=== PATIENT | female | born 1965 | race Hispanic/Latino ===

== ENCOUNTER 2017-01-05 19:01 | Emergency (ER) | payer OTHER ==
[2017-01-05] MEDS ORDERED: BACTRIM DS PO ONE (19:15)
--- NOTE | 2017-01-05 19:17 | Emergency Department Report ---
HPI - General Time Seen by Provider: 01/05/17 19:15 - HPI HPI: 54-year-old female who presents to the emergency department with complaint of pain, redness and some swelling around the left elbow. It started off this morning as a small bump but there was some small amount of purulent discharge. It is gotten progressively bigger since. There is some mild discomfort. There is also some mild swelling but it is not gotten to the point where it is restricted her range of motion. She has a history of abscess and cellulitis in the past. She has an anaphylactic reaction to penicillin's. She otherwise has a past medical history of hypertension. She has not taken anything for symptoms prior to presentation. She denies any fever, nausea, vomiting. No recent travel or sick contacts at home. She works at a [employer] but denies any animal bites or scratches. ED Past Medical Hx - Medications Home Medications: Home Medications Medication Instructions Recorded Confirmed Last Taken Type Losartan [Cozaar] 50 mg PO BID 01/05/17 01/05/17 Unknown History PARoxetine [Paxil] 5 mg PO QDAY 01/05/17 01/05/17 Unknown History Sulfamethoxazole/Trimethoprim 1 each PO BID #14 tablet 01/05/17 Unknown Rx [Bactrim DS TAB] ED Review of Systems ROS: Stated complaint: ELBOW PAIN Other details as noted in HPI Comment: All other systems reviewed and negative Constitutional: denies: chills, fever Eyes: denies: eye pain, eye discharge, vision change ENT: denies: ear pain, throat pain Respiratory: denies: cough, shortness of breath, wheezing Cardiovascular: denies: chest pain, palpitations Gastrointestinal: denies: abdominal pain, nausea, diarrhea Genitourinary: denies: urgency, dysuria, discharge Musculoskeletal: joint swelling. denies: back pain Skin: change in color. denies: pruritus Neurological: denies: headache, weakness, paresthesias Physical Exam - Physical Exam Physical Exam: GENERAL: The patient is well-developed well-nourished. HEENT: Normocephalic. Atraumatic. Extraocular motions are intact. Patient has moist mucous membranes. NECK: Supple. Trachea is midline. CHEST/LUNGS: Clear to auscultation. There is no respiratory distress noted. HEART/CARDIOVASCULAR: Regular. There is no tachycardia. There is no gallop rub or murmur. ABDOMEN: Abdomen is soft, nontender. Patient has normal bowel sounds. There is no abdominal distention. SKIN: There is a area of erythema to the left upper extremity starting at the distal posterior humerus and going to the proximal volar forearm that appears consistent with a cellulitis. In the area of the forearm there is a small fluctuant raised area consistent with a abscess and a small punctate opening but no current drainage. NEURO: The patient is awake, alert, and oriented. The patient is cooperative. The patient has no focal neurologic deficits. The patient has normal speech. MUSCULOSKELETAL: There is some mild tenderness palpation to the left elbow and forearm the patient has a cellulitis and abscess. Radial pulses +2 over 4 bilaterally. There is no limitation range of motion. ED Medical Decision Making - Medical Decision Making 51-year-old female presents with a early cellulitis and abscess. The abscess is already started draining and therefore did not require any incision and drainage in the emergency department. She has been using moist heat. She was given a first dose of antibiotics here and a prescription for a seven-day course. She will follow-up with her primary care doctor and return with any worsening of her symptoms or any acute distress. Vital signs stable throughout her ED course. - Differential Diagnosis cellulitis, abscess, dermatitis, bursitis Critical Care Time: No Critical care attestation.: If time is entered above; I have spent that time in minutes in the direct care of this critically ill patient, excluding procedure time. ED Disposition Clinical Impression: Cellulitis of left elbow, Abscess of left arm Disposition: DISCHARGED TO HOME OR SELFCARE Is pt being admited?: No Condition: Stable Instructions: Cellulitis (ED), Abscess (ED) Additional Instructions: This follow-up with your primary care doctor in the next few days. Return to the emergency department with any worsening of your symptoms, development of fever, or any acute distress. Use warm, but not hot, compresses against the area of abscess to try and express more infection. If you use an actual heating pad, do not put it directly against the skin. Prescriptions: Sulfamethoxazole/Trimethoprim [Bactrim DS TAB] 1 each PO BID #14 tablet Referrals: PRIMARY CARE, [Primary Care Provider] - 3-5 Days Time of Disposition: 20:38
[2017-01-05 23:36] VITALS: BP 146/76
== END 2017-01-05 22:45 | disposition home or self-care (01) ==
LOC: ED 19:01
DX: L03.114 Cellulitis of left upper limb (principal); L02.414 Cutaneous abscess of left upper limb
CPT/HCPCS: 99282

== ENCOUNTER 2020-08-27 06:04 | Emergency (ER) | payer BC ==
[2020-08-27 06:10] VITALS: BP 159/79
--- NOTE | 2020-08-27 06:18 | Emergency Department Report ---
ED General Adult HPI - General Chief complaint: Dental/Oral Stated complaint: FACE SWOLLEN Source: patient Mode of arrival: Ambulatory Limitations: No Limitations - History of Present Illness Initial comments: Patient is a 54-year-old white female with a history of anxiety presents to the ED with complaint of acute onset persistent severe right mandibular premolar molar toothache with swollen gum for the last 2 days. Patient states that the swelling of the right mandibular gingiva got worse this morning when she woke up about 2 hours ago. Patient states that the pain has been persistent and constant especially in the last 12 hours. Patient denies fever, chills, cough, sore throat, nausea, vomiting, dysphagia, dysphonia, chest pain or shortness of breath, headache, dizziness or syncope, abdominal pain or traumatic injury. MD Complaint: right gum pain and swelling; right premolar and molar toothache -: Sudden, days(s) (2) Location: mouth Radiation: non-radiation Severity scale (0 -10): 8 Quality: aching, sharp Consistency: constant Improves with: none Worsens with: eating Associated Symptoms: denies other symptoms. denies: confusion, chest pain, cough, diaphoresis, fever/chills, headaches, malaise, nausea/vomiting, rash, shortness of breath, syncope, other Treatments Prior to Arrival: none - Related Data Home Medications Medication Instructions Recorded Confirmed Last Taken Losartan [Cozaar] 50 mg PO BID 01/05/17 01/05/17 Unknown PARoxetine [Paxil] 5 mg PO QDAY 01/05/17 01/05/17 Unknown Previous Rx's Medication Instructions Recorded Last Taken Type Sulfamethoxazole/Trimethoprim 1 each PO BID #14 tablet 01/05/17 Unknown Rx [Bactrim DS TAB] Acetaminophen/Codeine [Tylenol 1 tab PO Q6H PRN #12 tab 08/27/20 Unknown Rx /Codeine # 3 tab] Clindamycin [Clindamycin CAP] 300 mg PO Q8HR #60 capsule 08/27/20 Unknown Rx Ketorolac [Toradol] 10 mg PO Q8H PRN #20 tablet 08/27/20 Unknown Rx predniSONE [Deltasone] 40 mg PO QDAY #10 tab 08/27/20 Unknown Rx Allergies Allergy/AdvReac Type Severity Reaction Status Date / Time Penicillins Allergy Hives Verified 01/05/17 19:43 ED Review of Systems ROS: Stated complaint: FACE SWOLLEN Other details as noted in HPI Constitutional: denies: chills, fever Eyes: denies: eye pain, eye discharge, vision change ENT: dental pain (right mandibular premolar and molar toothache; swollen gum). denies: ear pain, throat pain Respiratory: denies: cough, shortness of breath, wheezing Cardiovascular: denies: chest pain, palpitations Endocrine: no symptoms reported Gastrointestinal: denies: abdominal pain, nausea, diarrhea Genitourinary: denies: urgency, dysuria, discharge Musculoskeletal: denies: back pain, joint swelling, arthralgia Skin: denies: rash, lesions Neurological: denies: headache, weakness, paresthesias Psychiatric: denies: anxiety, depression Hematological/Lymphatic: denies: easy bleeding, easy bruising ED Past Medical Hx - Past Medical History Previous Medical History?: Yes Hx Hypertension: Yes Hx Psychiatric Treatment: Yes (anxeity) - Surgical History Past Surgical History?: Yes Additional Surgical History: carpal tunnel right - Social History Smoking Status: Current Every Day Smoker Substance Use Type: None - Medications Home Medications: Home Medications Medication Instructions Recorded Confirmed Last Taken Type Losartan [Cozaar] 50 mg PO BID 01/05/17 01/05/17 Unknown History PARoxetine [Paxil] 5 mg PO QDAY 01/05/17 01/05/17 Unknown History Sulfamethoxazole/Trimethoprim 1 each PO BID #14 tablet 01/05/17 Unknown Rx [Bactrim DS TAB] Acetaminophen/Codeine [Tylenol 1 tab PO Q6H PRN #12 tab 08/27/20 Unknown Rx /Codeine # 3 tab] Clindamycin [Clindamycin CAP] 300 mg PO Q8HR #60 capsule 08/27/20 Unknown Rx Ketorolac [Toradol] 10 mg PO Q8H PRN #20 tablet 08/27/20 Unknown Rx predniSONE [Deltasone] 40 mg PO QDAY #10 tab 08/27/20 Unknown Rx ED Physical Exam - General Limitations: No Limitations General appearance: alert, in no apparent distress - Head Head exam: Present: atraumatic, normocephalic, normal inspection - Eye Eye exam: Present: normal appearance, PERRL, EOMI Pupils: Present: normal accommodation - ENT ENT exam: Present: mucous membranes moist, TM's normal bilaterally, normal external ear exam, other (Swollen, severely tender right mandibular gingiva with severely tender right mandibular premolar molar teeth) - Neck Neck exam: Present: normal inspection, full ROM - Respiratory Respiratory exam: Present: normal lung sounds bilaterally. Absent: respiratory distress, wheezes, rales, stridor, chest wall tenderness, decreased breath sounds, prolonged expiratory - Cardiovascular Cardiovascular Exam: Present: normal rhythm, tachycardia, normal heart sounds. Absent: systolic murmur, diastolic murmur, rubs, gallop - GI/Abdominal GI/Abdominal exam: Present: soft, normal bowel sounds. Absent: tenderness, guarding, hyperactive bowel sounds, hypoactive bowel sounds, organomegaly - Extremities Exam Extremities exam: Present: normal inspection, full ROM, normal capillary refill - Back Exam Back exam: Present: normal inspection, full ROM. Absent: tenderness, CVA tenderness (R), CVA tenderness (L), muscle spasm, paraspinal tenderness - Neurological Exam Neurological exam: Present: alert, oriented X3, CN II-XII intact, normal gait, reflexes normal - Psychiatric Psychiatric exam: Present: normal affect, normal mood - Skin Skin exam: Present: warm, dry, intact, normal color. Absent: rash ED Course Vital Signs 08/27/20 06:08 Temperature 98.5 F Pulse Rate 118 H Respiratory 18 Rate Blood Pressure 159/79 O2 Sat by Pulse 95 Oximetry ED Medical Decision Making - Medical Decision Making This is a 54-year-old white female with a history of anxiety presents to the ED with complaint of acute onset persistent severe right mandibular premolar molar toothache with swollen gum for the last 2 days. Patient states that the swelling of the right mandibular gingiva got worse this morning when she woke up about 2 hours ago. Patient states that the pain has been persistent and constant especially in the last 12 hours. In the ED, patient is alert and oriented x3 and is not in distress. Patient is however anxious, afebrile and tachycardic in triage. Patient was treated for pain and also given initial oral antibiotics in the ED. On reevaluation, patient's pain is well controlled medications. Patient's tachycardia resolved to 94 bpm prior to being d ischarged. Patient will discharge home on pain medications and advised to follow-up with her primary care physician or dentist in 7 to 10 days for reevaluation. Patient was advised return to the ED immediately if symptoms get worse. - Differential Diagnosis Dental abscess; gingivitis; dental caries; facial swelling Critical care attestation.: If time is entered above; I have spent that time in minutes in the direct care of this critically ill patient, excluding procedure time. ED Disposition Clinical Impression: Acute gingivitis, Abscess, dental Disposition: TO HOME OR SELFCARE Is pt being admited?: No Does the pt Need Aspirin: No Condition: Stable Instructions: Dental Abscess, [id number], Skin Abscess, [id number] Additional Instructions: Take medication with food, drink plenty of fluids and follow-up with a dentist or primary care physician in 7 to 10 days for reevaluation. Return to the ED immediately if symptoms get worse. Prescriptions: Clindamycin [Clindamycin CAP] 300 mg PO Q8HR #60 capsule predniSONE [Deltasone] 40 mg PO QDAY #10 tab Ketorolac [Toradol] 10 mg PO Q8H PRN #20 tablet PRN Reason: Pain Acetaminophen/Codeine [Tylenol /Codeine # 3 tab] 1 tab PO Q6H PRN #12 tab PRN Reason: Pain , Severe (7-10) Referrals: [facility] [Outside] - 3-5 Days Forms: Work/School Release Form(ED) Time of Disposition: 06:17 Print Language: SYRIAN
[2020-08-27] MEDS ORDERED: IBUPROFEN 600 MG TAB PO ONE (06:19)
[2020-08-27] MEDS ORDERED: predniSONE 20 MG TAB PO ONE (06:19)
[2020-08-27] MEDS ORDERED: ACETAMINOPHEN 500 MG TAB PO ONE (06:19)
[2020-08-27] MEDS ORDERED: ONDANSETRON 4 MG ODT TAB PO ONE (06:19)
[2020-08-27] MEDS ORDERED: CLINDAMYCIN 300 MG CAP PO ONE (06:19)
== END 2020-08-27 06:52 | disposition home or self-care (01) ==
LOC: ED 06:04
DX: K05.00 Acute gingivitis, plaque induced (principal); K04.7 Periapical abscess without sinus; I10 Essential (primary) hypertension; F41.9 Anxiety disorder, unspecified; F17.200 Nicotine dependence, unspecified, uncomplicated; Z79.899 Other long term (current) drug therapy; Z88.0 Allergy status to penicillin
CPT/HCPCS: 99282; J7512; Q0162